=== PATIENT | female | born 1960 | race Caucasian/White ===

== ENCOUNTER 2022-04-03 09:00 | Outpatient (CLI) | payer MEDICAID, OTHER ==
--- NOTE | 2022-04-03 13:00 | XRAY Report ---
PROCEDURE: Lumbar Spine 2 View INDICATIONS: RIGHT LUMBAR RADICULOPATHY TECHNIQUE: 2 views of the lumbar spine were acquired. COMPARISON: None. FINDINGS: Bones: Degenerative convex right thoracolumbar scoliosis present. Vertebral body height and align ment is maintained. Lower lumbar spine disc space narrowing and facet arthropathy noted Soft tissues: Overlying bowel gas pattern is normal. No suspicious soft tissue calcifications. 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
== END 2022-04-03 09:01 | disposition home or self-care (01) ==
LOC: DI.S 09:00
PROVIDERS: ATTEND Physician Assistant
DX: M47.816 Spondylosis without myelopathy or radiculopathy, lumbar region (principal); M51.36 Other intervertebral disc degeneration, lumbar region; M41.9 Scoliosis, unspecified

== ENCOUNTER 2023-02-14 07:00 | Outpatient (CLI) | payer MEDICAID, OTHER ==
--- NOTE | 2023-02-15 11:49 | XRAY Report ---
PROCEDURE: Hand 2 View RT INDICATIONS: CAT BITE TO RIGHT HAND TECHNIQUE: 2 views of the hand(s) acquired. COMPARISON: None. FINDINGS: Bones: No displaced fracture. No dislocation. Age-indeterminate, likely chronic bone fragment is tabatha rounding some interphalangeal joints, for example the third DIP on lateral view. These may be from pr ior injury or degeneration. Mild scattered degenerative changes. Soft tissues: No suspicious soft tissue calcifications or masses. IMPRESSION: No acute radiographic abnormality. If there is high concern for occult injury, consider repeat radiog karly or cross-sectional imaging. Mild scattered degenerative changes. Reviewed by: Suleman Shah MD on 02/15/2023 11:48 AM PST Approved by: Suleman Shah MD on 02/15/2023 11:48 AM PST Station ID: [id number]
== END 2023-02-14 23:59 | disposition home or self-care (01) ==
LOC: DI.S 07:00
PROVIDERS: ATTEND Registered Nurse
DX: M19.041 Primary osteoarthritis, right hand (principal); L03.90 Cellulitis, unspecified